=== PATIENT | male | born 2000 | race African-American/Black ===

== ENCOUNTER 2020-11-01 16:48 | Emergency (ER) | payer OTHER ==
[~2020-11-01] VITALS: Ht 182.9 cm; Wt 102.1 kg
--- NOTE | 2020-11-01 16:48 | NUR ---
PT JOEL AND [employer] FROM HOME C/O SI "HE TRIED TO TAKE A BOTTLE OF PROZAC" PT IS AAOX4, NOT IN RESPIRATORY DISTRESS, V/S STABLE, KEPT RESTED AND COMFORTABLE. SITTER AT BEDSIDE. WILL CONTINUE TO MONITOR.
--- NOTE | 2020-11-01 16:56 | NUR ---
SEEN AND EXAMINED BY .
--- NOTE | 2020-11-01 17:04 | NUR ---
URINAL GIVEN BUT UNABLE TO PROVIDE URINE SPECIMEN THIS TIME.
[2020-11-01 17:22] LABS: BASOPHILS # (AUTO) 0.1 K/uL (0.0-0.2); BASOPHILS % (AUTO) 0.7 % (0.0-2.0); EOSINOPHILS % (AUTO) 0.9 % (0.0-6.0); HEMATOCRIT 44 % (39-51); HEMOGLOBIN 14.8 g/dL (13.5-17.5); LYMPHOCYTES % (AUTO) 20.2 % (20.0-44.0); MEAN CORPUSCULAR HGB CONC 33 g/dl (31.0-36.0); MEAN CORPUSCULAR VOLUME 84 fL (80-96); MONOCYTES # (AUTO) 0.8 K/uL (0.1-1.30); NEUTROPHILS # (AUTO) 6.8 K/uL (1.8-8.9); NEUTROPHILS % (AUTO) 70.2 % (43.0-81.0); PLATELET COUNT (AUTO) 243 K/uL (150-450); WHITE BLOOD COUNT (AUTO) 9.7 K/uL (4.3-11.0)
[2020-11-01 17:30] LABS: CALCIUM, SERUM 9.5 mg/dL (8.5-10.1); CARBON DIOXIDE 23 mmol/L (21-32); CHLORIDE 104 mmol/L (98-107); CREATININE 0.9 mg/dL (0.6-1.3); GLUCOSE 86 mg/dL (74-106); POTASSIUM 3.7 mmol/L (3.5-5.1); SODIUM SERUM 139 mmol/L (136-145); UREA NITROGEN, BLOOD 6 mg/dL (7-18)
[2020-11-01 17:36] LABS: ACETAMINOPHEN < 10 ug/ml (10-30); ALANINE AMINOTRANSFERASE 25 U/L (12-78); ALCOHOL, BLOOD < 3 mg/dL (0-0); ALKALINE PHOSPHATASE 66 U/L (46-116); ASPARTATE AMINOTRANSFERASE 20 U/L (15-37); BILIRUBIN,DIRECT 0.1 mg/dL (0.0-0.2); BILIRUBIN,TOTAL 0.4 mg/dL (0.2-1.0); TOTAL PROTEIN, SERUM 7.9 g/dL (6.4-8.2)
--- NOTE | 2020-11-01 18:17 | NUR ---
COVID SPECIMEN OBTAINED AND SENT TO LAB.
[2020-11-01 19:27] LABS: BILIRUBIN,URINE Negative (NEGATIVE); COLOR,URINE YELLOW (YELLOW); LEUKOCYTE ESTERASE ,URINE Negative (NEGATIVE); NITRITE, URINE Negative (NEGATIVE); PROTEIN,URINE 30 mg/dl (NEGATIVE); UGLUCOSE Negative (NEGATIVE)
--- NOTE | 2020-11-01 19:31 | NUR ---
FAXED CLINICALS TO [facility]
--- NOTE | 2020-11-01 19:43 | NUR ---
CALLED [facility] TO INFORM ABOUT PT BEING ON 5150. PT WILL BE EVALUATED BY [facility] [employer] REGISTRAR.
--- NOTE | 2020-11-01 19:48 | NUR ---
CALLED [facility] [phone] LEFT [facility].
[2020-11-01 20:01] LABS: BACTERIA,URINE Rare /HPF (None Seen); RBC,URINE 0-2 /HPF (0-2); WBC,URINE 0-2 /HPF (0-3)
[2020-11-01 20:02] LABS: SQUAMOUS EPITHELIAL CELL,UR 0-2 /HPF (None Seen)
--- NOTE | 2020-11-01 22:19 | NUR ---
DICK CALLED, STATING THAT JEREMY IS COVERING FOR IZAIAH. WILL FOLLOW UP WITH JEREMY.
--- NOTE | 2020-11-01 22:23 | NUR ---
CALLED [employer] JEREMY FOR PSYCH EVAL, STATES WILL BE HERE SHORLTY
--- NOTE | 2020-11-01 22:56 | NUR ---
JEREMY VELASQUEZFT AT BEDSIDE TO [place] PT. PT CALM AND COOPERATIVE AT THIS TIME.
--- NOTE | 2020-11-01 23:17 | NUR ---
PT MOM WILL COME TO [employer] DR[employer] PT WHEN READY.
--- NOTE | 2020-11-02 00:58 | NUR ---
AWAITING FOR MOTHER TO CHIEF PSYCHOLOGIST PT.
[2020-11-02 01:28] VITALS: BP 122/71
--- NOTE | 2020-11-02 01:28 | NUR ---
PATIENT IS PICKED UP BY MOTHER.
== END 2020-11-02 01:28 | disposition home or self-care (01) ==
LOC: ER 16:50
DX: T43.222A Poisoning by selective serotonin reuptake inhibitors, intentional self-harm, initial encounter (principal); Y92.89 Other specified places as the place of occurrence of the external cause; F31.9 Bipolar disorder, unspecified
CPT/HCPCS: 36415; 80048; 80076; 80143; 80307; 80320; 81001; 85025; 87426; 99285; C9803; G0480